=== PATIENT | male | born 1950 | race African-American/Black ===

== ENCOUNTER 2024-02-11 12:57 | Emergency (ER) | payer SELFPAY ==
[~2024-02-11] VITALS: Ht 172.7 cm; Wt 91.0 kg
[2024-02-11 13:05] VITALS: O2SAT 96
[2024-02-11 13:29] LABS: BASOPHILS % 0.3 % (0.0-2.0); EOSINOPHILS % 2.6 % (0.0-5.0); HEMATOCRIT. 35.1 % (42.0-52.0); HEMOGLOBIN. 12.3 g/dL (14.0-18.0); LYMPHOCYTES % 21.5 % (20.0-50.0); MEAN CORPUSCULAR HEMOGLOBIN 33.4 pg (28.0-32.0); MEAN CORPUSCULAR VOLUME 95.6 fL (80.0-94.0); MEAN PLATELET VOLUME 7.9 fl (7.4-10.4); NEUTROPHILS % 65.6 % (40.0-76.0); PLATELET 330 x1000/uL (130-400); RED BLOOD CELL COUNT 3.68 mill/uL (4.7-6.1); RED CELL DISTRIBUTION WIDTH 11.5 % (11.6-14.6); WHITE BLOOD COUNT 6.8 x1000/uL (4.5-11.0)
[2024-02-11 13:41] LABS: POTASSIUM 3.9 mEq/L (3.5-5.1)
[2024-02-11 13:42] LABS: CALCIUM 9.8 mg/dL (8.7-10.4)
[2024-02-11] MEDS: KETOROLAC 30MG/ML VIAL IV ONE (13:43)
[2024-02-11 13:47] LABS: CREATININE 1.3 mg/dL (0.6-1.3)
[2024-02-11] MEDS: IOHEXOL-350 100 ML BOTTLE ONE (15:49)
[2024-02-11] MEDS: IOHEXOL-300 100 ML BOTTLE ONE (15:49)
[2024-02-11 16:02] LABS: CLARITY URINE CLEAR (CLEAR); COLOR URINE YELLOW (YELLOW); GLUCOSE URINE NEGATIVE (NEGATIVE); KETONES URINE NEGATIVE (NEGATIVE); LEUKOCYTE ESTERASE URINE NEGATIVE (NEGATIVE); NITRITE URINE NEGATIVE (NEGATIVE); OCCULT BLOOD URINE NEGATIVE (NEGATIVE); PROTEIN URINE NEGATIVE (NEGATIVE); SPECIFIC GRAVITY URINE 1.041 (1.005-1.030)
[2024-02-11 16:52] VITALS: BP 145/69; PULSE 85; RESP 17; TEMP 98.1
== END 2024-02-11 16:53 | disposition home or self-care (01) ==
LOC: ER 12:57
DX: R10.9 Unspecified abdominal pain (principal); J45.909 Unspecified asthma, uncomplicated; I10 Essential (primary) hypertension
CPT/HCPCS: 80048; 81003; 83690; 85025; 36415; 74177; 96374; 99285; Q9967 ×2; J1885; Z7610 ×4

== ENCOUNTER 2024-03-13 10:12 | Emergency (ER) | payer MEDICARE ==
[~2024-03-13] VITALS: Ht 172.7 cm; Wt 82.0 kg
[2024-03-13 10:40] VITALS: PULSE 94; RESP 18; O2SAT 100
[2024-03-13] MEDS: IPRATROPIUM BROMIDE (0.02%) 0.5MG/2.5ML NEB HHN STA (10:40)
[2024-03-13] MEDS: ALBUTEROL (0.083%) 2.5MG/3ML NEB HHN STA (10:40)
[2024-03-13] MEDS: DEXAMETHASONE 4MG/ML 1ML VIAL IM ONE (10:58)
[2024-03-13] MEDS ORDERED: ALBU6.7H15 INH (13:07)
[2024-03-13 13:47] VITALS: BP 157/98; PULSE 97; RESP 16; TEMP 98.4
== END 2024-03-13 13:59 | disposition home or self-care (01) ==
LOC: ER 10:12
DX: J45.901 Unspecified asthma with (acute) exacerbation (principal); I10 Essential (primary) hypertension
CPT/HCPCS: 99285; 94640; 96372; J1100